=== PATIENT | male | born 1975 | race Caucasian/White ===

== ENCOUNTER → 2020-12-19 | Outpatient (CLI) | payer BC | LOC: RAD 12:43 | DX: R05 Cough (principal); J98.11 Atelectasis | CPT/HCPCS: 71046 ==

== ENCOUNTER → 2021-01-13 | Outpatient (CLI) | payer BC | LOC: KOH-I 14:01 | DX: M79.671 Pain in right foot (principal) | CPT/HCPCS: 73630 ==

== ENCOUNTER → 2021-10-27 | Outpatient (CLI) | payer BC | LOC: US 10-24 14:00 | DX: N50.89 Other specified disorders of the male genital organs (principal); N43.3 Hydrocele, unspecified; I86.1 Scrotal varices | CPT/HCPCS: 76870 ==

== ENCOUNTER → 2021-11-03 | Outpatient (CLI) | payer BC | LOC: KOH-I 13:36 | DX: R07.81 Pleurodynia (principal); J98.11 Atelectasis | CPT/HCPCS: 71046 ==